=== PATIENT | female | born 1960 | race Caucasian/White ===

== ENCOUNTER → 2016-11-20 | Outpatient (CLI) | payer OTHER ==
[~2016-11-20] MED LIST: ACETAMINOPHEN PO; AMOXICILLIN500 M1 PO; CIPRO PO; GEODON60 MG PO; LITHIUM PO; PREDNISONE PO; PROZAC PO; SYNTHROID PO; THYROID PILL; [UNRECOGNIZED DRUG - REMARK]
--- NOTE | ~2016-11-20 | MR17 ---
[facility] A Service of [facility] RADIOLOGY TEXT RESULTS PATIENT: FERNANDO CLAYTON LOCATION: [facility] : 60 UNIT #: [id number] AGE: [address]: Augustina Renae MD SEX: F ORDER DR: [id number] [facility] [address] [place], [place] [address] [id number] O MR#: [id number] Acc #: [id number] NAME: FERNANDO CLAYTON. : 1960 SEX: F STUDY DATE/TIME: 11/20/2016 8:57 UNIT: [facility] ROOM: STUDY DESCRIPTION: MR Brain WWo Contrast Attending Physician: Augustina Renae M.D. Referring Physician: Augustina Renae M.D. Ordering Physician: Augustina Renae M.D. Primary Care Physician: [facility] CENTER REPORT This report is preliminary unless electronic signature is present. EXAM MR brain 11/20 INDICATIONS Several episodes of amnesia over the last of 2-3 weeks. TECHNIQUE Multisequence multiplanar imaging was performed through the brain before and after the IV administration of 11 mL of MultiHance contrast. COMPARISON STUDIES No comparison. FINDINGS Diffusion imaging shows no evidence of acute or subacute infarct. Ventricular size and configuration within normal limits. Scattered small T2 hyperintensities in the white matter are statistically most compatible with chronic small vessel ischemic disease. No masses or pathologic contrast enhancement identified. Craniovertebral junction is normal. The major cranial flow voids are maintained. There is a soft tissue nodule in the frontal scalp near the midline. Correlate with physical exam findings. IMPRESSION 1. No acute findings in the brain. 2. Scattered T2 hyperintensities in the white matter which are the cystic lesion most likely the result of chronic small vessel ischemic disease. 3. No masses or pathologic contrast enhancement identified. Dictated by... Angel Alvarez Jr., M.D. THIS IS AN ELECTRONICALLY VERIFIED REPORT [facility] A Service of [facility] RADIOLOGY TEXT RESULTS PATIENT: FERNANDO CLAYTON LOCATION: [facility] : 60 UNIT #: [id number] AGE: [address]: Augustina Renae MD SEX: F ORDER DR: Angel Alvarez Jr., M.D. at 11/23/2016 5:01 PM SATISH/jovana TD: 11/23/2016 15:30 JOB #: [id number] MRI CENTER REPORT Page 1 of 1 COPY
== END | disposition home or self-care (01) ==
LOC: CMRI 08:13
DX: R41.3 Other amnesia (principal); R90.82 White matter disease, unspecified
CPT/HCPCS: 70553; A9577